=== PATIENT | male | born 1985 | race African-American/Black ===

== ENCOUNTER 2024-12-18 00:48 | Inpatient (IN) | payer MEDICAID ==
[2024-12-18] VITALS (62 sets, daily range): BP systolic 102–148; BP diastolic 62–103; PULSE 80–127; RESP 16–26; TEMP 35.9–36.6; O2SAT 98–100
[~2024-12-18] VITALS: Ht 185.4 cm; Wt 90.7 kg
[2024-12-18] MEDS: MIDAZOLAM HCL 2 MG/2 ML VIAL IV ONE (01:21)
[2024-12-18] MEDS: SODIUM CHLORIDE 0.9% 1,000 ML IV ONE ×3 (01:22→02:17)
[2024-12-18] MEDS: MIDAZOLAM 100MG/100ML PMX 100 ML IV ONE (01:32)
[2024-12-18 01:43] LABS: CHLORIDE 107 mEq/L (98-107); POTASSIUM 3.8 mEq/L (3.5-5.1); SODIUM 144 mEq/L (136-145)
[2024-12-18 01:44] LABS: CARBON DIOXIDE 19 mEq/L (21-32)
[2024-12-18 01:45] LABS: CALCIUM 10.2 mg/dL (8.7-10.4)
[2024-12-18 01:49] LABS: CREATININE 1.7 mg/dL (0.6-1.3); GLUCOSE 132 mg/dL (70-105)
[2024-12-18 01:50] LABS: ETHANOL BLOOD < 10 mg/dL (<10); TROPONIN I HIGH SENSITIVITY 17 ng/L (3.0-53); UREA NITROGEN BLOOD 24 mg/dL (9-23)
[2024-12-18 01:51] LABS: ACETAMINOPHEN < 2 ug/mL (10-30)
[2024-12-18 01:54] LABS: BASOPHILS % 0.9 % (0.0-2.0); EOSINOPHILS % 0.6 % (0.0-5.0); HEMATOCRIT. 44.9 % (42.0-52.0); HEMOGLOBIN. 14.8 g/dL (14.0-18.0); LYMPHOCYTES % 12.2 % (20.0-50.0); MEAN CORPUSCULAR HEMOGLOBIN 29.5 pg (28.0-32.0); MEAN CORPUSCULAR HGB CONC 33.1 g/dL (31.0-37.0); MEAN CORPUSCULAR VOLUME 89.2 fL (80.0-94.0); MEAN PLATELET VOLUME 8.7 fl (7.4-10.4); MONOCYTES % 8.5 % (2.0-8.0); NEUTROPHILS % 77.8 % (40.0-76.0); PLATELET 362 x1000/uL (130-400); RED BLOOD CELL COUNT 5.04 mill/uL (4.7-6.1); RED CELL DISTRIBUTION WIDTH 14.6 % (11.6-14.6); WHITE BLOOD COUNT 8.2 x1000/uL (4.5-11.0)
[2024-12-18 01:55] LABS: LACTIC ACID 9.6 mmol/L (0.4-2.0)
[2024-12-18 01:56] LABS: PROTHROMBIN TIME 10.6 sec (9.6-11.0)
[2024-12-18 02:02] LABS: CREATINE KINASE 1262 IU/L (46-171)
[2024-12-18] MEDS: ROCURONIUM BROMIDE 10MG/ML VIAL 5ML IV ONE (02:17)
[2024-12-18 02:18] LABS: CLARITY URINE CLEAR (CLEAR); COLOR URINE YELLOW (YELLOW); GLUCOSE URINE NEGATIVE (NEGATIVE); KETONES URINE NEGATIVE (NEGATIVE); LEUKOCYTE ESTERASE URINE NEGATIVE (NEGATIVE); NITRITE URINE NEGATIVE (NEGATIVE); OCCULT BLOOD URINE 1+ (NEGATIVE); PH URINE 5.5 (4.5-8.0); PROTEIN URINE 1+ (NEGATIVE); SPECIFIC GRAVITY URINE 1.017 (1.005-1.030); UROBILINOGEN URINE 0.2 E.U./dL (0.2-1.0)
[2024-12-18] MEDS: MORPHINE SULFATE 4 MG/ML INJ (FOR IV/IM USE) IV STA (02:20)
[2024-12-18] MEDS: ONDANSETRON HCL 4MG/2ML INJ IV STA (02:21)
[2024-12-18] MEDS: PROPOFOL 10MG/ML 100ML 100 ML IV ONE (02:22)
[2024-12-18] MEDS: MIDAZOLAM HCL 100 MG in DEXT 5% WATER 80 ML IV ONE (02:23)
[2024-12-18 02:33] LABS: *AMPHETAMINES SCREEN URINE PRESUMPTIVE POSITIVE (NEGATIVE); *BARBITURATES SCREEN URINE NEGATIVE (NEGATIVE); *BENZODIAZEPINES SCREEN URINE PRESUMPTIVE POSITIVE (NEGATIVE); *COCAINE SCREEN URINE NEGATIVE (NEGATIVE); CANNABINOID URINE SCREEN NEGATIVE (NEGATIVE); ECSTASY MDMA SCREEN URINE NEGATIVE (NEGATIVE); METHADONE URINE SCREEN NEGATIVE (NEGATIVE); OPIATES URINE SCREEN NEGATIVE (NEGATIVE); PHENCYCLIDINE URINE SCREEN PRESUMTIVE POSITIVE (NEGATIVE)
[2024-12-18] MEDS: KETAMINE HCL 50 MG/ML 10ML IV ONE (03:05)
[2024-12-18 03:09] LABS: RBC URINE 0-2 /hpf (0-2); SQUAMOUS EPITHELIAL CELL URINE NONE SEEN /lpf (RARE/1+); WBC URINE 0-2 /hpf (0-2)
[2024-12-18 03:10] LABS: BACTERIA URINE NONE SEEN
[2024-12-18 04:19] LABS: TROPONIN I HIGH SENSITIVITY 25 ng/L (3.0-53)
[2024-12-18 04:55] LABS: BG BASE EXCESS -5.5 mmol/L (-2.0-3.0); BG CARBOXYHEMOGLOBIN 0.7 % (0.5-1.5); BG DEOXYHEMOGLOBIN 0.4 % (0.0-5.0); BG FRACTION INSPIRED OXYGEN 60; BG METHEMOGLOBIN 0.2 % (0.5-1.5); BG OXYGEN SATURATION 99.6 % (94.0-98.0); BG OXYHEMOGLOBIN 98.7 % (94.0-98.0); BG PCO2 39.5 mmHg (35.0-48.0); BG PH 7.323 (7.350-7.450); BG PO2 255.7 mmHg (83.0-108.0); BG SAMPLE SITE RIGHT RADIAL; BG TOTAL HEMOGLOBIN 13.9 g/dL (13.5-17.5); BG VENT MODE VENT - AC
[2024-12-18] MEDS ORDERED: KETAMINE HCL 100 MG in SODIUM CHLORIDE 0.9% 98 ML IV PRN ×2 (05:30→05:45)
[2024-12-18] MEDS ORDERED: SODIUM CHLORIDE 0.9% 1,000 ML IV SCH ×3 (05:30)
[2024-12-18] MEDS ORDERED: NOREPINEPHRINE 8MG/250ML PMX 250 ML IV PRN (05:30)
[2024-12-18] MEDS: PROPOFOL 10MG/ML 100ML 100 ML IV PRN (06:42)
[2024-12-18] MEDS: KETAMINE HCL 100 MG in SODIUM CHLORIDE 0.9% 100 ML IV PRN (06:42)
[2024-12-18] MEDS ORDERED: MIDAZOLAM 100MG/100ML PMX 100 ML IV PRN (10:00)
[2024-12-18] MEDS: MIDAZOLAM 100MG/100ML PMX 100 ML IV PRN (10:27)
[2024-12-18] MEDS ORDERED: ROCURONIUM BROMIDE 10MG/ML VIAL 5ML IV ONE (11:27)
[2024-12-18] MEDS: INSULIN LISPRO 100 UNITS/ML SUBCUT SCH (14:00)
[2024-12-18] MEDS: DEXT 5%/0.45% NACL 1000ML 1,000 ML IV SCH (14:35)
[2024-12-18] MEDS: BLOOD SUGAR DIAGNOSTIC STRIP TEST SCH (14:35)
[2024-12-18] MEDS: SODIUM CHLORIDE 0.9% IV NR (21:54)
[2024-12-18] MEDS: DEXTROSE 50% WATER 50ML SYRINGE IV PRN (22:58)
[2024-12-18 23:58] LABS: CREATINE KINASE 1282 IU/L (46-171)
[2024-12-19] VITALS (84 sets, daily range): BP systolic 123–152; BP diastolic 78–136; PULSE 82–111; RESP 14–23; TEMP 36.6–37.7; O2SAT 96–100
[2024-12-19] MEDS: DEXT 10% WATER 1,000 ML IV SCH ×2 (01:02→09:30)
[2024-12-19 02:11] LABS: ALANINE AMINOTRANSFERASE 26 IU/L (10-49); ALBUMIN 3.7 g/dL (3.2-4.8); ASPARTATE AMINOTRANSFERASE 47 IU/L (<34); BILIRUBIN DIRECT 0.1 mg/dL (<=3.0); BILIRUBIN TOTAL 0.4 mg/dL (0.1-1.0); PHOSPHORUS 3.8 mg/dL (2.5-4.9); PROTEIN TOTAL 6.8 g/dL (6.0-8.3)
[2024-12-19 06:04] LABS: CHLORIDE 112 mEq/L (98-107); HEMATOCRIT. 44.9 % (42.0-52.0); HEMOGLOBIN. 14.5 g/dL (14.0-18.0); MEAN CORPUSCULAR HEMOGLOBIN 30.2 pg (28.0-32.0); MEAN CORPUSCULAR HGB CONC 32.3 g/dL (31.0-37.0); MEAN CORPUSCULAR VOLUME 93.4 fL (80.0-94.0); MEAN PLATELET VOLUME 8.3 fl (7.4-10.4); PLATELET 278 x1000/uL (130-400); POTASSIUM 3.9 mEq/L (3.5-5.1); RED BLOOD CELL COUNT 4.81 mill/uL (4.7-6.1); RED CELL DISTRIBUTION WIDTH 15.4 % (11.6-14.6); SODIUM 146 mEq/L (136-145); WHITE BLOOD COUNT 8.7 x1000/uL (4.5-11.0)
[2024-12-19 06:05] LABS: CALCIUM 9.2 mg/dL (8.7-10.4); CARBON DIOXIDE 24 mEq/L (21-32)
[2024-12-19 06:10] LABS: GLUCOSE 112 mg/dL (70-105); TRIGLYCERIDE 131 mg/dL (0-150)
[2024-12-19 06:11] LABS: UREA NITROGEN BLOOD 11 mg/dL (9-23)
[2024-12-19 06:12] LABS: ALANINE AMINOTRANSFERASE 25 IU/L (10-49); ALBUMIN 3.6 g/dL (3.2-4.8); ASPARTATE AMINOTRANSFERASE 43 IU/L (<34); BILIRUBIN TOTAL 0.4 mg/dL (0.1-1.0); PHOSPHORUS 2.9 mg/dL (2.5-4.9)
[2024-12-19 06:13] LABS: PROTEIN TOTAL 6.8 g/dL (6.0-8.3)
[2024-12-19 06:46] LABS: DIFFERENTIAL COMMENT 1
[2024-12-19] MEDS ORDERED: VANCOMYCIN 1.5GM PMX (XELLIA) 300 ML IV NR (07:30)
[2024-12-19] MEDS: PROPOFOL 10MG/ML 100ML 100 ML IV PRN (08:28)
[2024-12-19] MEDS: FAMOTIDINE 20MG/2ML VIAL IV SCH ×2 (08:38→21:35)
[2024-12-19] MEDS ORDERED: PANTOPRAZOLE SODIUM 40 MG/VIAL IV SCH (09:00)
[2024-12-19] MEDS: VANCOMYCIN 1.5GM/250ML 250 ML IV NR (09:33)
[2024-12-19 11:45] LABS: PLATELET ESTIMATE NORMAL
[2024-12-19] MEDS: ONDANSETRON HCL 4MG/2ML INJ IV PRN (11:51)
[2024-12-19] MEDS: PIPERACILLIN/TAZO 3.375G/50ML 50 ML IV SCH (12:13)
[2024-12-19] MEDS ORDERED: HALOPERIDOL LACTATE 5MG/ML VIAL IM PRN (12:45)
[2024-12-19] MEDS: KETAMINE HCL 100 MG in SODIUM CHLORIDE 0.9% 98 ML IV PRN (13:12)
[2024-12-19] MEDS: IPRATROPIUM/ALBUTEROL 0.5-3(2.5)MG/3ML NEB HHN PRN (14:26)
[2024-12-19] MEDS ORDERED: HYDRALAZINE 20MG/ML VIAL IV PRN (15:45)
[2024-12-19] MEDS: MORPHINE SULFATE 2 MG/ML INJ (NOT FOR IM USE) IV NR (15:50)
[2024-12-19] MEDS ORDERED: VANCOMYCIN 1GM/200ML PMX (BAXTER) IV SCH (16:00)
[2024-12-19] MEDS: KETOROLAC 15MG/ML VIAL IV PRN (17:11)
[2024-12-19] MEDS ORDERED: NALOXONE HCL 0.4MG/ML VIAL IV PRN (19:15)
[2024-12-19] MEDS: HYDROCODONE/ACETAMINOPHEN 5/325MG TABLET PO PRN (19:48)
[2024-12-19] MEDS: QUETIAPINE FUMARATE 50MG TABLET PO SCH (21:35)
[2024-12-19] MEDS: VANCOMYCIN 1.5GM/250ML 250 ML IV SCH (22:33)
[2024-12-20] MEDS: LORAZEPAM 2MG/ML UD SYRINGE IV PRN (03:27)
[2024-12-20 04:00] VITALS: BP 133/83; PULSE 85; RESP 19; TEMP 36.4; O2SAT 99
[2024-12-20 08:00] VITALS: BP 121/72; PULSE 97; RESP 19; TEMP 38.2; O2SAT 98
[2024-12-20 12:00] VITALS: BP 116/65; PULSE 91; RESP 18; TEMP 37.2; O2SAT 98
[2024-12-20 14:17] VITALS: BP 116/65; PULSE 91; TEMP 99; O2SAT 98
== END 2024-12-20 17:06 | disposition home or self-care (01) | DRG 812 ==
LOC: ER 00:54 → EDBD 03:36 → CVICU 03:36 → EDBEDREQ 03:51 → EDBEDREQTM 03:51 → 6EST 12-19 21:45
PROVIDERS: ADMIT Internal Medicine; ATTEND Internal Medicine
PROC: 5A1945Z Respiratory Ventilation, 24-96 Consecutive Hours (ICD-10-PCS; principal; 2024-12-18)
PROC: 0BH17EZ Insertion of Endotracheal Airway into Trachea, Via Natural or Artificial Opening (ICD-10-PCS; 2024-12-18)
DX: T40.991A Poisoning by other psychodysleptics [hallucinogens], accidental (unintentional), initial encounter (principal); J96.01 Acute respiratory failure with hypoxia; G92.8 Other toxic encephalopathy; N17.9 Acute kidney failure, unspecified; M62.82 Rhabdomyolysis; F19.10 Other psychoactive substance abuse, uncomplicated; F15.10 Other stimulant abuse, uncomplicated; F13.10 Sedative, hypnotic or anxiolytic abuse, uncomplicated; Y92.89 Other specified places as the place of occurrence of the external cause; F16.129 Hallucinogen abuse with intoxication, unspecified; Z59.01 Sheltered homelessness; Z59.00 Homelessness unspecified; Z78.1 Physical restraint status
CPT/HCPCS: 31500; 36415; 36600; 71045; 80048; 80053; 80076; 80305; 80307; 80320; 80329; 81003; 82375; 82550; 82805; 82962; 83036; 83605; 83735; 84100; 84478; 84484; 85025; 87070; 93005; 94002; 94003; 94070; 94640; 94664; 98960; 99291; J1630; J1885; J2060; J2250; J2270; J2405; J2543; J2704; J3370; J3490; J7030; J7050; J7060; G0480